=== PATIENT | male | born 1980 | race Caucasian/White ===

== ENCOUNTER → 2023-12-27 | Outpatient (CLI) | payer MEDICAID ==
--- NOTE | 2024-02-06 15:17 | NUR ---
Downtime: An Electronic Health Record (EHR) downtime event occurred during this patient's care. For legal medical record information generated during the downtime period, please reference the patient's legal medical record. Paper or scanned documentation has been incorporated into the legal medical record which is maintained in accordance with Health Information Management (HIM) and record retention policies.
== END ==
LOC: RAD 11:37
DX: Z11.1 Encounter for screening for respiratory tuberculosis (principal)